=== PATIENT | male | born 1965 | race Caucasian/White ===

== ENCOUNTER 2017-05-11 13:25 | Day surgery (SDC) | payer OTHER ==
[~2017-05-11] VITALS: Ht 165.1 cm; Wt 90.2 kg
[2017-05-11 13:47] VITALS: Ht 165.1 cm; Wt 90.2 kg
[2017-05-11] MEDS ORDERED: BP MEDS (13:49)
[2017-05-11 13:51] VITALS: BP 161/91; PULSE 75; RESP 18
--- NOTE | 2017-05-11 14:12 | OPPN ---
Date/Time of Note Date/Time of Note DATE: 05/11/17 TIME: 14:10 Patient to follow-up for as outpatient Repeat colonoscopy in 5 years Operative Report Preoperative Diagnosis Elevated CEA for screening colonoscopy Postoperative Diagnosis 1 small 3 mm polyp in the rectum removed Grade 1 internal hemorrhoids not bleeding Operation/Procedure Performed Colonoscopy polyp removal by biopsy polypectomy Surgeon see signature line case assistant DR. GREGORY Second assist: ALEXEI ISLAS MD Anesthesia: MAC Estimated blood loss: none Transfusion Required none Specimen 3 mm polyp from the rectum removed Grafts/Implants none Complications none LOLITA FATIMA MD May 11, 2017 14:12
[2017-05-11 14:40] VITALS: BP 137/75; PULSE 71; RESP 16
--- NOTE | 2017-05-12 07:12 | GILP ---
DATE OF PROCEDURE: PREOPERATIVE DIAGNOSIS: The patient had a mild elevation of the CEA and is sent for screening colon oscopy. PROCEDURE DONE: Colonoscopy and polyp removal in the rectum, 3 mm polyp removed. POSTOPERATIVE DIAGNOSES: A 3 mm polyp in the rectum, grade I internal hemorrhoids. DESCRIPTION OF PROCEDURE: The patient was put in left lateral decubitus after obtaining informed co nsent, the patient was sedated, monitored by the anesthesiologist. Rectal exam done which was unrem arkable. Advanced an Olympus video colonoscope all the way to cecum. Somewhat poor prep in the cec um, it was cleared by lavage. Appendiceal opening identified. Ileocecal valve identified. Cecum, ascending colon normal. Transverse colon, descending colon normal. Sigmoid colon unremarkable. No rmal in the rectum, a 3-mm polyp was noted. This was removed by biopsy forceps completely and sent to histopathology. By retroflexion and antegrade exam, there were grade I internal hemorrhoids. Th en the scope was withdrawn. The patient had no complication. Plan will be to await for biopsy repo rt, follow up as outpatient, followup colonoscopy probably in 5 years. Meanwhile, the CEA probably needs to be further addressed. If it raises further, consider CT scan of the abdomen also. Dictated By: LOLITA BERGERON Conf#: [id number] DID#: [id number] CC: Leif Coburn;*EndCC*
== END 2017-05-11 16:55 | disposition home or self-care (01) ==
LOC: GIL 13:25
PROVIDERS: ATTEND Internal Medicine
DX: Z12.11 Encounter for screening for malignant neoplasm of colon (principal); K62.1 Rectal polyp; K64.0 First degree hemorrhoids; I10 Essential (primary) hypertension
CPT/HCPCS: 45380; Z7610; 88305